=== PATIENT | male | born 1965 | race Caucasian/White ===

== ENCOUNTER 2019-01-06 09:56 | Outpatient (CLI) | payer BC ==
--- NOTE | 2019-01-06 15:42 | PET ---
PET WITH CT SKULL TO MID THIGH: No prior comparison imaging. CLINICAL INDICATION: Laryngeal carcinoma. RADIOTRACER: 11.4 mCi F18-FDG IV intermixed with 10 mL 0.9% sodium chloride. There is appropriate biodistribution of radiotracer activity. FINDINGS: There is a markedly hypermetabolic mass centered at the right aspect of the glottis, which does trave rse to the left of midline via the posterior commissure. Maximum SUV is measured at approximately 15. 5. The adjacent thyroid cartilage demonstrates multifocal punctate lucency, nonspecific. These findin gs are at the low size of threshold for PET resolution. There is hypermetabolic activity involving ri ght Level IV lymph node, with maximum SUV approximately 8.1. There are multiple hypermetabolic right hilar lymph nodes, which measure up to 9 SUV. Subcarinal adenopathy also present with SUV of 3.7. Non specific ground-glass subpleural opacity of the left upper lobe demonstrates mild increased metabolic activity, although is not frankly hypermetabolic, with SUV of 1.9. No hypermetabolic osseous lesions are identified. IMPRESSION: 1. Evidence of malignancy centered at the right vocal cord. Hypermetabolic activity does traverse mi dline posteriorly via the posterior commissure. There is nonspecific multifocal punctate lucency of t he adjacent thyroid cartilage. 2. Multifocal hypermetabolic adenopathy. 3. Nonspecific ground-glass opacity of the subpleural aspect of the left upper lobe, which is not fr ankly hypermetabolic. This finding is nonspecific, and recommend continued CT surveillance to exclude progression. POS: PIPPA
== END 2019-01-06 09:57 | disposition home or self-care (01) ==
LOC: PET 09:56
PROVIDERS: ATTEND Radiology Therapeutic Radiology
DX: C32.0 Malignant neoplasm of glottis (principal); R91.8 Other nonspecific abnormal finding of lung field
CPT/HCPCS: 78815; A9552

== ENCOUNTER 2019-01-16 13:15 | Outpatient (CLI) | payer BC ==
[~2019-01-16 13:15] MED LIST: Iopamidol 370 76% 100 ML VIAL ONE
--- NOTE | 2019-01-16 15:06 | CT ---
CT CHEST WITH IV CONTRAST: Date: 01/16/19 PROVIDED CLINICAL HISTORY: Laryngeal cancer. FINDINGS: Correlation is made with the PET CT examination of 01/06/19. The previously described right laryngeal mass is partially visualized. There is an enlarged right hilar lymph node measuring about 2.3 cm in short axis, corresponding to th e area of hypermetabolic activity on the prior PET CT examination. The hypermetabolic subcarinal lymp h node demonstrated on the PET CT is not enlarged by size criteria. No additional thoracic lymph node enlargement is evident. The heart, pericardium, and great vessels demonstrate an unremarkable CT appearance, with the excepti on of vascular calcification. The area of ground-glass opacity previously seen involving the left upper lobe is no longer apparent. The lungs are free of significant opacity. Minimal subpleural emphysematous changes are seen. No pleural fluid or pneumothorax is evident. The osseous structures demonstrate no concerning lytic or blastic lesions. The visualized portions of the upper abdomen appear unremarkable. IMPRESSION: 1. Enlarged right hilar lymph node corresponds to hypermetabolic activity on prior PET scan. Nonenla rged subcarinal lymph node corresponds to hypermetabolic activity on prior PET scan. 2. Partially visualized known laryngeal mass. 3. Interval resolution of the previously described left upper lobe ground-glass opacity. POS: TPC
== END 2019-01-16 13:16 | disposition home or self-care (01) ==
LOC: BICCT 13:15
PROVIDERS: ATTEND Radiology Radiation Oncology
DX: C32.9 Malignant neoplasm of larynx, unspecified (principal); R59.0 Localized enlarged lymph nodes; R91.8 Other nonspecific abnormal finding of lung field
CPT/HCPCS: 71260; Q9967

== ENCOUNTER 2019-01-19 09:20 | Observation (INO) | payer BC ==
[2019-01-19] MEDS ORDERED: Ketorolac Tromethamine 30 MG/ML VIAL ONE (10:41)
--- NOTE | 2019-01-19 11:03 | HP ---
CHIEF COMPLAINT: Metastatic laryngeal cancer. HISTORY OF PRESENT ILLNESS: The patient is a 53-year-old white male. He has been evaluated and followed by Dr. Castillo, Dr. Woody, and Dr. Brooks for a metastatic laryngeal cancer. Recent imaging and evaluation reveals that his laryngeal lesion is near obstructing and urgent chemotherapy is as planned. MediPort replacement is requested for chemotherapy administration. The patient is recognized to have a large hilar lymph node that is felt to be metastatic from the lesion. PAST MEDICAL HISTORY: Significant for hypertension. PAST SURGICAL HISTORY: He had a lymph node biopsy recently and states that he had a finger surgery about 25-30 years ago. MEDICATIONS: Lisinopril. ALLERGIES: NONE. PERSONAL AND SOCIAL HISTORY: He is with no children. 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 He formerly was a heavy smoker and had smoked for over 30 years, but quit last month. He drinks at least a 6-pack of beer per day as well. REVIEW OF SYSTEMS: Otherwise unremarkable. FAMILY HISTORY: Noncontributory. PHYSICAL EXAMINATION: VITAL SIGNS: He is afebrile. Vital signs within normal limits. GENERAL: He is a well-developed, well-nourished, pleasant white male, in no acute distress. He does have audible breathing while in the room with him. He is alert and oriented x3, and cooperative. HEAD, EYES, EARS, NOSE, AND THROAT: Unremarkable. NECK: Supple without mass or tenderness. LUNGS: Clear to auscultation. CARDIAC: Regular rate and rhythm without murmur. ABDOMEN: Soft. LABORATORY DATA: Comprehensive metabolic panel performed yesterday was unremarkable. ASSESSMENT: The patient with metastatic laryngeal cancer causing near obstruction of his airway. PLAN: MediPort placement for chemotherapy administration. I discussed the operation in detail with the patient as well as potential risks. He understands and agrees to proceed with surgery. Job ID: [id number]
[2019-01-19] MEDS ORDERED: Bupivacaine/Epinephrine 0.25% 30 ML VIAL ONE (11:40)
[2019-01-19] MEDS ORDERED: Lidocaine 1% (PF) 30 ML VIAL ONE (11:40)
[2019-01-19] MEDS ORDERED: Midazolam HCl 2 mg/2 ml Vial ONE ×2 (11:45→11:47)
[2019-01-19] MEDS ORDERED: Sodium Chloride 0.9% 10 ML ONE (13:20)
[2019-01-19] MEDS ORDERED: HYDROcodone/Acetaminophen 5/325 mg Tablet PO PRN (13:49)
[2019-01-19] MEDS ORDERED: Zolpidem Tartrate 5 MG TAB PO PRN (13:49)
[2019-01-19] MEDS ORDERED: Ondansetron PF 4 MG/2 ML Vial IVP PRN (13:49)
[2019-01-19] MEDS ORDERED: Nicotine 14 MG PATCH TD SCH (14:00)
--- NOTE | 2019-01-19 14:07 | PDOC.EVN ---
Event Note - Event Note Event Note: H&P dictated #[id number]
[2019-01-19] MEDS ORDERED: Amiodarone 150 MG in Dextrose 5% in Water 100 ML IVPB SCH ×2 (14:15→15:30)
[2019-01-19] MEDS ORDERED: Amiodarone 450 MG in Dextrose 5% in Water 250 ML IVPB SCH (14:15)
[2019-01-19] MEDS ORDERED: Enoxaparin Sodium 80 MG/0.8 ML SYRINGE SC SCH ×2 (15:00→23:59)
--- NOTE | 2019-01-19 15:43 | RAD ---
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 COMPARISON: Chest CT scan, 01/16/2019. FINDINGS: Newly placed right central line and injection port without pneumothorax or other acute process. Biap ical pleural thickening. No confluent pneumonia or significant pleural effusion. IMPRESSION: Right central line and injection port placed without pneumothorax or pleural effusion. Otherwise, st able chest. POS: TPC
--- NOTE | 2019-01-19 15:55 | EKG ---
Test Reason : POST OP Blood Pressure : / mmHG Vent. Rate : 124 BPM Atrial Rate : 147 BPM P-R Int : 000 ms QRS Dur : 088 ms QT Int : 322 ms P-R-T Axes : 000 050 000 degrees QTc Int : 462 ms Atrial fibrillation with rapid ventricular response Abnormal ECG No previous ECGs available Confirmed by KATINA GRADY ([id number]) on 01/19/2019 3:55:19 PM Referred By: MARCO Confirmed By:KATINA GRADY
[2019-01-19 16:18] LABS: Troponin I 0.027 ng/mL (< 0.028)
--- NOTE | 2019-01-19 17:01 | ULT ---
BILATERAL LOWER EXTREMITY VENOUS DOPPLER: Date: 01/19/19 HISTORY: Lower extremity edema. New onset of atrial fibrillation. COMPARISON: None. TECHNIQUE: Real-time Feng scale and color Doppler with spectral analysis of the bilateral lower extremity venous system was performed. The common femoral, femoral, proximal portions of greater saphenous and deep f emoral veins, as well as the popliteal and posterior tibial veins are interrogated. FINDINGS: Normal flow, augmentation, and compression. IMPRESSION: No deep venous thrombosis. POS: BAMBI
[2019-01-19 19:05] VITALS: BMI 26.6
--- NOTE | 2019-01-19 20:02 | HP ---
CHIEF COMPLAINT: New-onset atrial fibrillation. HISTORY OF PRESENT ILLNESS: This is a 53-year-old male who was found to have laryngeal cancer recently, had an oncology evaluation done and was to have a chemo port placement today. The patient today had the chemo port placed, was to start his radiation and chemotherapy from tomorrow; however, postoperatively in PACU, he was noted to have new onset atrial fibrillation. The patient states that he has never had any cardiac issues or cardiac stenting or any prior history of atrial fibrillation in the past. This is all new to him. Only known medical diagnosis is his laryngeal cancer for which he was planning on starting chemotherapy tomorrow in the PACU. The surgery team had discussed with Cardiology if any intervention is needed per cardiac recommendations. The patient was to be admitted to the hospital for further workup. The patient at point in time of evaluation, had no symptoms or complaints. Did not have any nausea, vomiting, diarrhea, constipation, chest pain, fevers, chills, or shortness of breath. The patient denies any alleviating or aggravating factors. No other associated symptoms noted. The patient is seen and examined in PACU. No family at bedside. REVIEW OF SYSTEMS: All systems reviewed. Pertinent positives in HPI, otherwise negative. PAST MEDICAL HISTORY: Chronic smoker, one pack a day for 40+ years. Quit about 2 days ago, so nicotine addiction, laryngeal cancer. FAMILY HISTORY: Positive for NE. SOCIAL HISTORY: The patient states that he drinks 5-6 beers a day and has a 40+ pack-year smoking history, recently quit about 2 days ago. HOME MEDICATIONS: See MAR. PHYSICAL EXAMINATION: VITAL SIGNS: Blood pressure was 125/88, heart rate ranging anywhere from 80 to 150, temperature of 98, respiratory rate of 12. GENERAL: The patient lying in bed comfortably. No acute distress. HEENT: Pupils are equal, round, and reactive to light and accommodation. Extraocular muscles intact. Oral cavity, moist and pink. NECK: Supple, mobile, nontender. Thyroid appreciated. LUNGS: Clear to auscultation bilaterally. No respiratory distress noted. The patient does have a chemo port on the right upper chest quadrant. CARDIOVASCULAR: Irregularly irregular rhythm. Tachycardic, S1, S2. Faint murmur appreciated. ABDOMEN: Positive bowel sounds. Soft, nontender. EXTREMITIES: 1+ pitting edema in bilateral lower extremities. No cyanosis or clubbing noted. 2+ peripheral pulses. NEUROLOGICAL: Cranial nerves 2 through 12 intact. No loss of motor or sensory function. LABORATORY DATA: No labs available. ASSESSMENT: 1. New-onset atrial fibrillation. 2. Laryngeal carcinoma. 3. Nicotine addiction. PLAN: At this point in time, we will admit the patient to observation services. Consult is placed to Cardiology by surgery team, we will also consult the patient oncologist per patient's request as he was to start chemotherapy tomorrow and at this point in time, we will probably need to have his chemo readjusted or possibly change to a different time. Place the patient on tele monitoring. We will check TSH, echocardiogram, troponins q.8 hours x3. We will start the patient on aspirin as well as full-dose Lovenox, can likely switch over to Eliquis or Xarelto, one of the newer factor Xa inhibitors in a.m. if cleared by Cardio and Oncology for discharge. We will also start the patient on high-dose statin medication. Chest x-ray for tomorrow. CBC, BMP for tomorrow morning as well. The patient wishes to remain a full code. Case and plan discussed with the patient at length. He understands and agrees to this plan. Job ID: [id number]
[2019-01-19] MEDS: Metoprolol Tartrate 50 MG TAB PO SCH (20:27)
[2019-01-19] MEDS ORDERED: Atorvastatin Calcium 40 MG TAB PO SCH (21:00)
[2019-01-19 22:51] LABS: Troponin I Less than 0.010 ng/mL (< 0.028)
[2019-01-20] MEDS ORDERED: Palonosetron HCl 0.25 MG in Sodium Chloride 0.9% 50 ML IVPB SCH (01:15)
[2019-01-20] MEDS ORDERED: Fosaprepitant Dimeglumine 150 MG in Sodium Chloride 0.9% 250 ML 150 ML IVPB SCH (01:15)
[2019-01-20] MEDS ORDERED: Dexamethasone 10 MG in Sodium Chloride 0.9% 50 ML IVPB SCH (01:15)
[2019-01-20] MEDS ORDERED: SODIUM CHLORIDE 0.9% IVPB SCH (01:30)
[2019-01-20] MEDS ORDERED: SODIUM CHLORIDE 0.9% IV SCH (01:30)
[2019-01-20] MEDS ORDERED: DOCETAXEL IVPB SCH (01:30)
[2019-01-20] MEDS ORDERED: Sodium Chloride 0.9% 1,000 ML IV SCH (01:30)
[2019-01-20] MEDS ORDERED: CISPLATIN IV SCH (01:30)
[2019-01-20] MEDS ORDERED: MANNITOL IV SCH (01:30)
[2019-01-20 07:31] LABS: #Basophils 0.1 thou/uL (0.0-0.2); #Eosinphils 0.2 thou/uL (0.0-0.7); #Lymphocytes 1.8 thou/uL (1.20-3.40); #Monocytes 0.9 thou/uL (0.11-0.59); #Neutrophils 3.8 thou/uL (1.40-6.50); %Eosinophils 2.7 % (0.0-10.0); %Lymphocytes 26.1 % (21.0-51.0); %Monocytes 13.1 % (0.0-10.0); %Neutrophils 57.2 % (42.0-75.0); Hemoglobin 13.7 g/dL (14.0-18.0); Mean Corpuscular HGB CONC 33.8 g/dL (32.0-36.0); Mean Corpuscular Hemoglobin 34.6 pg (27.0-31.0); Mean Platelet Volume 6.2 fL (7.4-10.4); Platelet Count 286 thou/uL (130-400); RBC Distribution Width 11.3 % (11.5-14.5); Red Blood Cell (RBC) Count 3.95 mill/uL (4.70-6.10); White Blood Cell (WBC) Count 6.7 thou/uL (4.8-10.8)
[2019-01-20 07:47] LABS: Anion Gap 12 mmol/L (10-20); BUN (Urea Nitrogen) 12 mg/dL (8.4-25.7); Calc. Creatinine Clearance 115 mL/min (70-130); Calcium 8.9 mg/dL (7.8-10.44); Carbon Dioxide 26 mmol/L (22-29); Chloride 106 mmol/L (98-107); Estimated GFR-MDRD 79; Glucose 97 mg/dL (70-105); Potassium 4.2 mmol/L (3.5-5.1); Sodium 140 mmol/L (136-145)
[2019-01-20 07:53] LABS: Troponin I 0.012 ng/mL (< 0.028)
[2019-01-20 08:11] VITALS: BP 134/73; TEMP 98
--- NOTE | 2019-01-20 08:34 | RAD ---
CHEST 1 VIEW: Date: HISTORY: Shortness of breath. COMPARISON: None. FINDINGS: Port-A-Cath is in place with tip in the mid SVC. Heart size is normal. No acute osseous abnormality. There is fullness of the right hilum. IMPRESSION: 1. No acute intrathoracic abnormality. 2. Fullness in the right hilum likely sequelae of adenopathy. POS: CET
[2019-01-20] MEDS ORDERED: Enoxaparin Sodium 80 MG/0.8 ML SYRINGE SC SCH (09:00)
[2019-01-20] MEDS ORDERED: Aspirin 81 mg Enteric Coated Tablet PO SCH (09:00)
[2019-01-20] MEDS ORDERED: Amiodarone 200 MG TAB PO SCH (09:00)
[2019-01-20] MEDS: Metoprolol Tartrate 50 MG TAB PO SCH (09:05)
--- NOTE | 2019-01-20 10:08 | PDOC.EVN ---
Event Note - Event Note Event Note: [id number]
--- NOTE | 2019-01-20 10:42 | DIS ---
DATE OF ADMISSION: 01/19/2019 DATE OF DISCHARGE: 01/20/2019 ADMITTING DIAGNOSES: 1. New-onset atrial fibrillation. 2. Laryngeal carcinoma. 3. Hypertension. 4. Hypothyroidism. 5. Hyperlipidemia. DISCHARGE DIAGNOSES: 1. Atrial fibrillation, resolved. 2. Laryngeal carcinoma, stable. 3. Hypertension. 4. Hyperlipidemia. HOSPITAL COURSE: This is a 53-year-old male, who was found to have new-onset atrial fibrillation, status post insertion of a chemo port in the PACU. The patient was admitted to Internal Medicine Team, followed by Oncology as well as Cardiology and Surgery. The patient was cleared for discharge from hospice specialist prior to leaving the hospital. The patient reverted back to normal sinus rhythm, was to be discharged with aspirin 81 mg given a low CHADS2-VASc score as well as metoprolol 25 mg p.o. b.i.d. Home medication was to be resumed. The patient was advised to follow up with PCP, Oncology, and Cardiology within 2 to 3 weeks for further management and care. The patient upon the time of discharge, denies any nausea, vomiting, diarrhea, constipation, chest pain, fevers, or shortness of breath and was stable. DISPOSITION: Home. PROGNOSIS: Good. CONDITION: Stable. ACTIVITY: As tolerated with assistance as needed. DIET: Low-fat, low-calorie, and high-fiber diet. DISCHARGE MEDICATIONS: See MAR. Case and plan discussed with the patient and daughter at length. They understood and agreed with this plan. Job ID: [id number]
--- NOTE | 2019-01-20 13:09 | OP ---
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 OPERATION PERFORMED: Placement of low-profile right subclavian vein power compatible MediPort. ANESTHESIA: Conscious sedation with local using 0.25% Marcaine with epinephrine. INDICATIONS: The patient is a 53-year-old white male. 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 He has near obstruction of his airway that leads to audible breathing. Emergency MediPort is requested so that he may begin chemotherapy as soon as possible. Due to the concerns regarding his airway, it is decided to do this under sedation rather than a total intravenous anesthetic. DESCRIPTION OF OPERATION: Informed consent was obtained. The patient was taken to the operating room where sedative was administered per Anesthesia. Right chest was prepped with ChloraPrep and draped in sterile fashion. Local anesthetic was infiltrated using a mixture of 1% lidocaine with 0.25% Marcaine with epinephrine. A large gauge needle was passed under the clavicle into the subclavian vein on the initial pass. A guidewire was passed through the needle and fluoroscopically confirmed to enter the superior vena cava. Needle was removed, additional local anesthetic was infiltrated, skin was incised and a subcutaneous pocket was dissected extending inferiorly. Introducer dilator was passed over the guidewire using fluoroscopic guidance. The guidewire was removed and the catheter was passed through the introducer which was removed in the usual peel-apart fashion. Catheter tip was positioned at the superior vena cava and the catheter was trimmed to appropriate length and secured to the locking hub of the MediPort. The port was secured to pectoral fascia with 2 interrupted sutures of 3-0 Prolene. The final x-ray revealed appropriate position of the port and the catheter. The wound was closed in layers with 3-0 and 4-0 Monocryl and Dermabond was placed externally. The port aspirated blood freely and was flushed with heparinized saline. It was accessed with the Mace needle and a Tegaderm was placed over the access catheter in anticipation of beginning chemotherapy within the next 24 hours. Unfortunately, it was recognized after the catheter had been placed that he had gone into atrial fibrillation and was tachycardic as well. He was entirely stable with this and was taken to the recovery room in hopes that the atrial fibrillation would convert spontaneously as he had no prior history of this. Job ID: [id number]
== END 2019-01-20 11:37 | disposition home or self-care (01) ==
LOC: SDC 09:20 → 2SW 18:40
PROVIDERS: ADMIT Internal Medicine; ATTEND Internal Medicine
PROC: 05H533Z Insertion of Infusion Device into Right Subclavian Vein, Percutaneous Approach (ICD-10-PCS; principal; 2019-01-20)
DX: C32.9 Malignant neoplasm of larynx, unspecified (principal); I48.91 Unspecified atrial fibrillation; I10 Essential (primary) hypertension; Z87.891 Personal history of nicotine dependence
CPT/HCPCS: 36415; 71045; 80048; 84443; 84484; 85025; 93005; 93010; 93970; 96365; 96366; 96372; C1788; G0378; J0282; J1100; J1453; J1642; J1650; J1885; J2001; J2250; J2469; J3480; J7050; J7070

== ENCOUNTER 2019-05-02 11:46 | Day surgery (SDC) | payer BC ==
[2019-05-02] MEDS ORDERED: Sodium Chloride 0.9% 20 ML ONE (11:50)
[2019-05-02] MEDS ORDERED: Acetaminophen 500 MG TAB PO SCH (12:00)
[2019-05-02] MEDS ORDERED: diphenhydrAMINE 25 MG CAP PO SCH (12:00)
[2019-05-02 15:18] LABS: Hemoglobin 7.6 g/dL (14.0-18.0)
[2019-05-02 15:35] VITALS: TEMP 97.9
[2019-05-02 17:12] VITALS: BP 151/75
== END 2019-05-02 17:15 | disposition home or self-care (01) ==
LOC: ONC/OP 11:46
PROVIDERS: ATTEND Internal Medicine Hematology & Oncology
PROC: 30233N1 Transfusion of Nonautologous Red Blood Cells into Peripheral Vein, Percutaneous Approach (ICD-10-PCS; principal; 2019-05-02)
DX: D64.9 Anemia, unspecified (principal); D69.6 Thrombocytopenia, unspecified
CPT/HCPCS: 36430; 36591; 85014; 85018; 86850; 86900; 86901; J1642; P9016; Q0163

== ENCOUNTER 2019-08-17 09:12 | Outpatient (CLI) | payer BC ==
--- NOTE | 2019-08-17 10:48 | PET ---
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 Evaluation was performed on a [employer] workstation. FINDINGS: INTRACRANIAL: No areas of increased or decreased uptake of the radiopharmaceutical in the brain. NECK: There is hypermetabolic activity in the region of the larynx which projects slightly more poste riorly rather than along the true vocal cords. This has a max SUV value of 6.4. No mass is seen in either vocal cord and the cords appear symmetric. No other areas of hypermetabolic activity CHEST: No areas of hypermetabolic activity ABDOMEN/PELVIS: No areas of hypermetabolic activity SKELETON: No areas of hypermetabolic activity CT images used for attenuation correction show a right-sided Mediport with its tip in the superior ve na cava. Atherosclerotic calcifications are seen in the aorta. IMPRESSION: Persistent hypermetabolic activity in the larynx. This could be secondary to phonation du ring the exam or secondary to a small amount of residual disease.
== END 2019-08-17 09:13 | disposition home or self-care (01) ==
LOC: PET 09:12
PROVIDERS: ATTEND Radiology Radiation Oncology
DX: C32.0 Malignant neoplasm of glottis (principal); R94.8 Abnormal results of function studies of other organs and systems
CPT/HCPCS: 78815; A9552